=== PATIENT | female | born 1930 | race Asian ===

== ENCOUNTER 2017-07-03 10:26 | Emergency (ER) | payer MEDICARE, MEDICAID ==
[~2017-07-03] VITALS: Ht 162.6 cm; Wt 63.0 kg
[2017-07-03 10:59] VITALS: BP 101/69
[2017-07-03 11:17] LABS: BASOPHILS % 0.7 % (0.0-2.0); HEMATOCRIT. 41.9 % (36.0-48.0); HEMOGLOBIN. 13.8 g/dL (12.0-16.0); LYMPHOCYTES % 25.4 % (20.0-50.0); MONOCYTES % 7.4 % (2.0-8.0); NEUTROPHILS % 65.5 % (40.0-76.0); PLATELET 243 x1000/uL (130-400); RED BLOOD CELL COUNT 4.61 mill/uL (4.2-5.4)
[2017-07-03 11:25] LABS: PROTHROMBIN TIME 10.7 sec (9.4-11.6)
[2017-07-03 11:37] LABS: CARBON DIOXIDE 32 mEq/L (21-32); CHLORIDE 99 mEq/L (98-107)
[2017-07-03 11:50] LABS: CLARITY URINE CLEAR (CLEAR); COLOR URINE YELLOW (YELLOW); KETONES URINE NEGATIVE (NEGATIVE); LEUKOCYTE ESTERASE URINE NEGATIVE (NEGATIVE); NITRITE URINE NEGATIVE (NEGATIVE); OCCULT BLOOD URINE NEGATIVE (NEGATIVE); PH URINE 7.5 (4.5-8.0); PROTEIN URINE NEGATIVE (NEGATIVE); UROBILINOGEN URINE 0.2 E.U./dL (0.2-1.0)
[2017-07-03] MEDS ORDERED: HALOPERIDOL LACTATE 5MG/ML VIAL IM ONE (12:00)
== END 2017-07-03 14:45 | disposition home or self-care (01) ==
LOC: ER 10:57
DX: F03.90 Unspecified dementia, unspecified severity, without behavioral disturbance, psychotic disturbance, mood disturbance, and anxiety (principal); F41.9 Anxiety disorder, unspecified; M79.661 Pain in right lower leg; I10 Essential (primary) hypertension; E11.9 Type 2 diabetes mellitus without complications; W19.XXXA Unspecified fall, initial encounter; Y93.89 Activity, other specified; Y92.89 Other specified places as the place of occurrence of the external cause; Y99.8 Other external cause status
CPT/HCPCS: 36415; 70450; 71045; 73560; 73590; 80053; 81003; 83605; 85025; 85610; 87040; 87086; 93005; 96372; 99285; J1630